=== PATIENT | male | born 1985 | race Caucasian/White ===

== ENCOUNTER 2021-02-22 21:39 | Inpatient (IN) ==
[2021-02-22] MEDS ORDERED: *HR* FentaNYL (PF) 100 MCG/2 ML VIAL IVP STA (22:50)
[2021-02-22] MEDS ORDERED: Ondansetron 4 MG/2 ML VIAL IVP ONE (22:51)
[2021-02-22] MEDS ORDERED: Naloxone 0.4 MG/ML INJ IVP PRN (23:04)
[2021-02-22 23:20] LABS: INR 1.1
[2021-02-23] MEDS: Ringers Solution, Lactated 1,000 ML IVC SCH ×6 (00:53→20:39)
[2021-02-23] MEDS ORDERED: *HR* LORazepam 2 MG/ML VIAL IVP PRN ×3 (01:31)
[2021-02-23 02:59] LABS: Basophils % 0.3 %; Eosinophils # 0.1 K/mcL (0.0-0.6); Eosinophils % 1.1 %; Hematocrit 46.5 % (37.5-50.1); Hemoglobin 16.8 g/dL (12.9-16.9); Immature Granulocytes % 0.4 % (0-4); Lymphocytes # 1.5 K/mcL (0.6-4.6); Mean Corpuscular HGB Conc 36.1 g/dL (31.6-35.5); Mean Corpuscular Hemoglobin 33.5 pg (28.0-33.3); Mean Corpuscular Volume 92.6 fL (83.0-100.0); Mean Platelet Volume 9.3 fL (9.4-12.4); Monocytes # 0.7 K/mcL (0.0-1.3); Monocytes % 9.8 %; Neutrophils # 5.2 K/mcL (1.6-8.9); Platelet Count 172 K/mcL (140-400); Red Blood Count 5.02 M/mcL (4.19-5.50); Red Cell Distribution Width 12.8 % (11.5-14.5); Segmented Neutrophils % 68.4 %; White Blood Count 7.6 K/mcL (4.3-11.1)
[2021-02-23 03:17] LABS: Bilirubin,Direct 5.7 mg/dL (0.0-0.2); Bilirubin,Indirect 7.7 mg/dL (0.0-1.0); Bilirubin,Total 13.4 mg/dL (0.3-1.0)
[2021-02-23 03:20] LABS: Alanine Aminotransferase 368 Units/L (7-52); Albumin 4.7 g/dL (3.5-5.7); Albumin/Globulin Ratio 2.2 (1.1-2.2); Alkaline Phosphatase 88 Units/L (34-104); Aspartate Amino Transferase 228 Units/L (13-39); BUN/Creatinine Ratio 9 (6-26); Bilirubin,Total 13.4 mg/dL (0.3-1.0); Blood Urea Nitrogen 11 mg/dL (6-20); Calcium 9.5 mg/dL (8.6-10.3); Carbon Dioxide 30 mEq/L (23-29); Chloride 103 mEq/L (98-107); Globulin 2.1 g/dL (2.4-3.5); Glucose 91 mg/dL (70-105); Magnesium 2.2 mg/dL (1.6-2.6); Osmolality,Calculated 291 (280-300); Phosphorous 2.8 mg/dL (2.7-4.5); Potassium 3.9 mEq/L (3.5-5.1); Sodium 141 mEq/L (136-145); Total Protein 6.8 g/dL (6.4-8.9); eGFR For African Americans > 60 (> 60); eGFR For Non-African Americans > 60 (> 60)
[2021-02-23 03:27] LABS: Chol/HDL Ratio 5.1 (0-4.9)
[2021-02-23 04:55] LABS: INR 1.1
[2021-02-23] MEDS: *HR* Heparin 5,000 UNIT/ML VIAL SQ SCH ×2 (05:30→16:52)
[2021-02-23 11:03] LABS: Hepatitis B Surface Antigen Nonreactive (Nonreactive)
[2021-02-23 11:31] LABS: Hepatitis C Virus Antibody Nonreactive (Nonreactive)
[2021-02-23 11:32] LABS: Hepatitis B Core IgM Nonreactive (Nonreactive)
[2021-02-23 11:33] LABS: Hepatitis A Antibody IgM Nonreactive (Nonreactive)
[2021-02-23] MEDS ORDERED: Acetaminophen 325 MG TABLET PO PRN (14:36)
[2021-02-23] MEDS: ALPRAZolam 1 MG TABLET PO PRN ×2 (16:51→23:28)
[2021-02-23] MEDS: Thiamine (B-1) 100 MG, Folic Acid 1 MG, MVI, adult with vitamin K 10 ML in 0.9 % Sodi... IVPB SCH (17:17)
[2021-02-24 03:28] LABS: Hematocrit 41.7 % (37.5-50.1); Mean Corpuscular HGB Conc 36.5 g/dL (31.6-35.5); Mean Corpuscular Hemoglobin 34.2 pg (28.0-33.3); Mean Corpuscular Volume 93.7 fL (83.0-100.0); Mean Platelet Volume 9.6 fL (9.4-12.4); Platelet Count 157 K/mcL (140-400); Red Blood Count 4.45 M/mcL (4.19-5.50); Red Cell Distribution Width 12.6 % (11.5-14.5); White Blood Count 6.6 K/mcL (4.3-11.1)
[2021-02-24 03:36] LABS: Hemoglobin 15.2 g/dL (12.9-16.9)
[2021-02-24 03:38] LABS: Alanine Aminotransferase 278 Units/L (7-52); Albumin/Globulin Ratio 2.4 (1.1-2.2); Alkaline Phosphatase 86 Units/L (34-104); Aspartate Amino Transferase 110 Units/L (13-39); BUN/Creatinine Ratio 6 (6-26); Bilirubin,Total 13.8 mg/dL (0.3-1.0); Blood Urea Nitrogen 7 mg/dL (6-20); Calcium 8.8 mg/dL (8.6-10.3); Carbon Dioxide 25 mEq/L (23-29); Chloride 105 mEq/L (98-107); Globulin 1.7 g/dL (2.4-3.5); Glucose 82 mg/dL (70-105); Lipase 107 Units/L (11-82); Osmolality,Calculated 287 (280-300); Potassium 3.6 mEq/L (3.5-5.1); Sodium 140 mEq/L (136-145); Total Protein 5.7 g/dL (6.4-8.9); eGFR For African Americans > 60 (> 60); eGFR For Non-African Americans > 60 (> 60)
[2021-02-24] MEDS: *HR* Heparin 5,000 UNIT/ML VIAL SQ SCH ×2 (05:38→17:03)
[2021-02-24] MEDS: Ringers Solution, Lactated 1,000 ML IVC SCH ×7 (05:40→19:53)
[2021-02-24] MEDS: Ondansetron 4 MG/2 ML VIAL IVP PRN ×2 (05:49→21:48)
[2021-02-24] MEDS: ALPRAZolam 1 MG TABLET PO PRN (05:49)
[2021-02-24] MEDS: Thiamine (B-1) 100 MG, Folic Acid 1 MG, MVI, adult with vitamin K 10 ML in 0.9 % Sodi... IVPB SCH (17:02)
[2021-02-24] MEDS ORDERED: Morphine Sulfate 2 MG/ML SYRINGE IVP ONE (22:05)
[2021-02-25] MEDS: Ringers Solution, Lactated 1,000 ML IVC SCH ×3 (01:26→11:15)
[2021-02-25 04:42] LABS: Hemoglobin 15.4 g/dL (12.9-16.9); Mean Corpuscular HGB Conc 35.8 g/dL (31.6-35.5); Mean Corpuscular Hemoglobin 33.6 pg (28.0-33.3); Mean Corpuscular Volume 93.7 fL (83.0-100.0); Mean Platelet Volume 9.3 fL (9.4-12.4); Platelet Count 149 K/mcL (140-400); Red Blood Count 4.59 M/mcL (4.19-5.50); Red Cell Distribution Width 12.7 % (11.5-14.5); White Blood Count 7.3 K/mcL (4.3-11.1)
[2021-02-25 05:28] LABS: Alanine Aminotransferase 260 Units/L (7-52); Albumin 4.2 g/dL (3.5-5.7); Albumin/Globulin Ratio 2.5 (1.1-2.2); Alkaline Phosphatase 95 Units/L (34-104); Aspartate Amino Transferase 86 Units/L (13-39); BUN/Creatinine Ratio 5 (6-26); Bilirubin,Total 14.6 mg/dL (0.3-1.0); Blood Urea Nitrogen 6 mg/dL (6-20); Calcium 9.2 mg/dL (8.6-10.3); Carbon Dioxide 28 mEq/L (23-29); Chloride 103 mEq/L (98-107); Globulin 1.7 g/dL (2.4-3.5); Glucose 103 mg/dL (70-105); Lipase 583 Units/L (11-82); Osmolality,Calculated 288 (280-300); Potassium 3.8 mEq/L (3.5-5.1); Sodium 140 mEq/L (136-145); Total Protein 5.9 g/dL (6.4-8.9); eGFR For African Americans > 60 (> 60); eGFR For Non-African Americans > 60 (> 60)
[2021-02-25] MEDS: *HR* Heparin 5,000 UNIT/ML VIAL SQ SCH ×2 (06:30→17:23)
[2021-02-25] MEDS ORDERED: predniSONE 20 MG TABLET PO SCH (09:00)
[2021-02-25] MEDS: MethylPREDNISolone 40 MG/ML VIAL IVP SCH ×2 (09:07→15:32)
[2021-02-25] MEDS: Pantoprazole 40 MG VIAL IVP SCH (09:07)
[2021-02-25 09:26] LABS: Bilirubin,Direct 7.3 mg/dL (0.0-0.2); Bilirubin,Indirect 7.3 mg/dL (0.0-1.0); Bilirubin,Total 14.6 mg/dL (0.3-1.0)
[2021-02-25] MEDS: ALPRAZolam 1 MG TABLET PO PRN (15:38)
[2021-02-25] MEDS: Thiamine (B-1) 100 MG, Folic Acid 1 MG, MVI, adult with vitamin K 10 ML in 0.9 % Sodi... IVPB SCH (17:12)
[2021-02-26] MEDS: Ringers Solution, Lactated 1,000 ML IVC SCH ×5 (01:08→21:07)
[2021-02-26] MEDS: MethylPREDNISolone 40 MG/ML VIAL IVP SCH ×3 (01:08→16:21)
[2021-02-26 02:18] LABS: Hematocrit 44.2 % (37.5-50.1); Hemoglobin 15.7 g/dL (12.9-16.9); Mean Corpuscular HGB Conc 35.5 g/dL (31.6-35.5); Mean Corpuscular Hemoglobin 33.1 pg (28.0-33.3); Mean Corpuscular Volume 93.2 fL (83.0-100.0); Mean Platelet Volume 9.5 fL (9.4-12.4); Platelet Count 179 K/mcL (140-400); Red Blood Count 4.74 M/mcL (4.19-5.50); Red Cell Distribution Width 12.5 % (11.5-14.5); White Blood Count 9.2 K/mcL (4.3-11.1)
[2021-02-26 02:41] LABS: Alanine Aminotransferase 243 Units/L (7-52); Albumin 4.1 g/dL (3.5-5.7); Albumin/Globulin Ratio 2.2 (1.1-2.2); Alkaline Phosphatase 104 Units/L (34-104); Aspartate Amino Transferase 72 Units/L (13-39); BUN/Creatinine Ratio 7 (6-26); Blood Urea Nitrogen 8 mg/dL (6-20); Calcium 9.1 mg/dL (8.6-10.3); Carbon Dioxide 24 mEq/L (23-29); Chloride 105 mEq/L (98-107); Globulin 1.9 g/dL (2.4-3.5); Glucose 104 mg/dL (70-105); Lipase 92 Units/L (11-82); Osmolality,Calculated 291 (280-300); Potassium 3.6 mEq/L (3.5-5.1); Sodium 141 mEq/L (136-145); eGFR For African Americans > 60 (> 60); eGFR For Non-African Americans > 60 (> 60)
[2021-02-26] MEDS: *HR* Heparin 5,000 UNIT/ML VIAL SQ SCH ×2 (05:57→16:21)
[2021-02-26] MEDS: Pantoprazole 40 MG VIAL IVP SCH (08:04)
[2021-02-26] MEDS: ALPRAZolam 1 MG TABLET PO PRN (12:24)
[2021-02-27] MEDS: MethylPREDNISolone 40 MG/ML VIAL IVP SCH ×2 (00:17→08:28)
[2021-02-27] MEDS: Ringers Solution, Lactated 1,000 ML IVC SCH ×3 (01:20→10:15)
[2021-02-27 05:15] LABS: Hematocrit 46.1 % (37.5-50.1); Hemoglobin 16.3 g/dL (12.9-16.9); Mean Corpuscular HGB Conc 35.4 g/dL (31.6-35.5); Mean Corpuscular Hemoglobin 33.5 pg (28.0-33.3); Mean Corpuscular Volume 94.7 fL (83.0-100.0); Mean Platelet Volume 9.7 fL (9.4-12.4); Platelet Count 176 K/mcL (140-400); Red Blood Count 4.87 M/mcL (4.19-5.50); Red Cell Distribution Width 12.9 % (11.5-14.5); White Blood Count 9.8 K/mcL (4.3-11.1)
[2021-02-27 05:32] LABS: Alanine Aminotransferase 223 Units/L (7-52); Albumin 4.1 g/dL (3.5-5.7); Albumin/Globulin Ratio 1.9 (1.1-2.2); Alkaline Phosphatase 99 Units/L (34-104); Aspartate Amino Transferase 48 Units/L (13-39); BUN/Creatinine Ratio 10 (6-26); Bilirubin,Direct 1.9 mg/dL (0.0-0.2); Bilirubin,Total 5.7 mg/dL (0.3-1.0); Blood Urea Nitrogen 10 mg/dL (6-20); Calcium 9.4 mg/dL (8.6-10.3); Carbon Dioxide 26 mEq/L (23-29); Chloride 104 mEq/L (98-107); Globulin 2.2 g/dL (2.4-3.5); Glucose 109 mg/dL (70-105); Lipase 105 Units/L (11-82); Osmolality,Calculated 290 (280-300); Potassium 3.9 mEq/L (3.5-5.1); Sodium 140 mEq/L (136-145); Total Protein 6.3 g/dL (6.4-8.9); eGFR For African Americans > 60 (> 60); eGFR For Non-African Americans > 60 (> 60)
[2021-02-27] MEDS: *HR* Heparin 5,000 UNIT/ML VIAL SQ SCH (06:02)
[2021-02-27] MEDS: Pantoprazole 40 MG VIAL IVP SCH (08:28)
[2021-02-27 13:53] LABS: Bilirubin,Direct 1.9 mg/dL (0.0-0.2); Bilirubin,Indirect 3.6 mg/dL (0.0-1.0); Bilirubin,Total 5.5 mg/dL (0.3-1.0)
[2021-02-27 14:33] VITALS: BP 147/92; PULSE 76; TEMP 98.6; O2SAT 94
== END 2021-02-27 15:55 | disposition home or self-care (01) | DRG 440 ==
LOC: EMEROOARM 21:39 → 3ANU 21:39
PROVIDERS: ADMIT Family Medicine; ATTEND Family Medicine